=== PATIENT | female | born 1990 ===

== ENCOUNTER 2017-10-03 05:07 | Emergency (ER) | payer SELFPAY ==
[2017-10-03 06:45] VITALS: BMI 23.9
[2017-10-03] MEDS: Lactated Ringer's 1,000 ML IV SCH ×2 (07:00→08:27)
[2017-10-03] MEDS ORDERED: Betamethasone Soluspan 30 mg/5mL Inj Susp IM ONE (07:00)
[2017-10-03 07:45] LABS: ALBUMIN 3.6 g/dL (3.5-5.0); CALCIUM 8.8 mg/dL (8.4-10.2); GFR AFRICAN-AMERICAN > 60; GFR NON-AFRICAN AMERICAN > 60
[2017-10-03 07:47] LABS: ALT/SGPT 28 U/L (9-52); AST/SGOT 32 U/L (14-36); BLOOD UREA NITROGEN 10 mg/dl (7-17)
[2017-10-03 07:53] LABS: BASO % 0.3 % (0.0-2.0); HEMOGLOBIN 11.5 g/dL (12.0-16.0); LYMPH # 0.6 K/uL (1.0-4.3); LYMPH % 5.9 % (20.0-40.0); MEAN CELL VOLUME 88.7 fl (81.0-99.0); MEAN CORPUSCULAR HEMOGLOBIN 29.9 pg (27.0-31.0); MEAN CORPUSCULAR HGB CONC 33.7 g/dL (33.0-37.0); MEAN PLATELET VOLUME 9.5 fl (7.2-11.7); MONO # 0.4 K/uL (0.0-0.8); NEUT # 9.8 K/uL (1.8-7.0); NEUT % 89.8 % (50.0-75.0); PLATELET COUNT 260 K/uL (130-400); RBC 3.83 Mil/uL (3.80-5.20); RED CELL DISTRIBUTION WIDTH 13.9 % (11.5-14.5)
--- NOTE | 2017-10-03 07:55 | OBHP ---
Datetime: 10/03/2017 06:00 IP Adm Impression: , intrauterine IP Chief Complaint Other: Vomiting. IP Admit Plan: Observation/Evaluation Admit Comment, IP Provider: 27 y/o F at 35.4 weeks GA, JESUS 10/24/17 by 6-weeks US, c/o nausea, vomiting, epigastric abdominal pain and diarrhea that began at 01:00 am. Pt reports 5 episodes on gr eenish non-bloody vomiting and 3 episodes of watery non-bloody diarrhea. No recent travel or ill cont act. Pt was at hospital accompnying her mother who had a surgery a few days ago. No CTX, LOF or VB. F M present. Pt denies headache, visual disturbances, dizziness, CP, SOB, urinary complaints or pruritu s. NKDA Meds: PNV PNC Clinic: [facility]. OBHx: PMHx: denied PSHx: denied FHx: NC SHx: No smoking, alcohol or rec drugs. A/P 27 y/o F with IUP at 35.4 weeks GA, with PO intolerance, N/V/D, cheikh and cervical ibrahim es, need to anticipate probable pre-term delivery. -IV fluids -Betamethasone 12mg once. -CBC with diff, CMP, U/A. -Observation, will re-evaluate pt in 1-2 hours. -PTL discussed with pt and FOB. Case discussed with Dr Cardenas, OB chiropractor sole practitioner Gisel PGY-1. Addendum: I saw and examined the patient at presentation. Patient with likely gastroenteritis, but possible labor. Plan to maintain observation, IV fluid hydration, betamethasone. Maternal well-being a nd well-being reassuring at this time. I discussed plan with patient and all patient questions answered. Extremities - PN: Normal Abdomen - PN: Normal Back - PN: Normal Breast - PN: Normal Lungs - PN: Normal Heart - PN: Normal Neurologic - PN: Normal HEENT - PN: Normal General - PN: Normal FHR - Baseline A Provider: 160 IP Hx Assessment: The History has been Reviewed and is Current EGA AdmitDate IP: 35.4 Vital Signs Provider: Reviewed IP Chief Complaint: Maternal discomfort; Other NICHD Variability Prov Fetus A: Moderate 6-25bpm NICHD Accel Fetus A IP Provider: 15X15 FHR Category Provider Fetus A: Category I Dilatation, Provider: 1 Effacement, Provider: 50 Station, Provider: -2 Genitourinary Exam: Normal DTRs - PN: Not Done
[2017-10-03] MEDS ORDERED: Lactated Ringer's 1,000 ML IV SCH (08:15)
[2017-10-03 08:50] LABS: SQUAMOUS EPITHIAL 2 /hpf (0-5); URINE BACTERIA RARE (<OCC); URINE BILIRUBIN NEGATIVE (NEGATIVE); URINE BLOOD NEGATIVE (NEGATIVE); URINE CLARITY SLIGHTY-CLOUDY (Clear); URINE COLOR YELLOW (YELLOW); URINE GLUCOSE (UA) NEG (Normal); URINE LEUKOCYTE ESTERASE NEG Leu/uL (Negative); URINE NITRATE NEGATIVE (NEGATIVE); URINE PROTEIN NEGATIVE (NEGATIVE); URINE UROBILINOGEN 0.2-1.0 mg/dL (0.2-1.0)
[2017-10-03 10:29] LABS: ANISOCYTOSIS SLIGHT; BANDS 2 % (0-2); BASOPHIL 1 % (0-2); LYMPHOCYTE 7 % (20-50); MONOCYTE 4 % (0-10); NEUTROPHIL 86 % (42-75); PLATELET ESTIMATE NORMAL (NORMAL); TEARDROP CELLS SLIGHT; TOTAL CELLS COUNTED 100
[2017-10-03 10:30] LABS: LARGE PLATELETS PRESENT; TOXIC GRANULATION PRESENT
[2017-10-03 19:26] VITALS: BP 90/52; PULSE 98; RESP 16; O2SAT 96
== END 2017-10-03 14:30 | disposition home or self-care (01) ==
LOC: H.EROB2 05:07 → H.EROB 05:28 → H.EROB2 14:30
DX: O21.0 Mild hyperemesis gravidarum (principal); O26.93 Pregnancy related conditions, unspecified, third trimester; R10.13 Epigastric pain; Z3A.35 35 weeks gestation of pregnancy
CPT/HCPCS: 80053; 81003; 85025; 96372; 99283; J0702; J7120

== ENCOUNTER 2017-10-04 07:47 | Emergency (ER) | payer OTHER, SELFPAY ==
[2017-10-04 08:25] VITALS: BMI 24.7
[2017-10-04] MEDS ORDERED: Lactated Ringer's 1,000 ML IV SCH (09:00)
[2017-10-04] MEDS ORDERED: Betamethasone Soluspan 30 mg/5mL Inj Susp IM ONE (09:10)
[2017-10-04 21:54] VITALS: BP 91/51; PULSE 93; TEMP 98.1; O2SAT 99
== END 2017-10-04 10:49 | disposition home or self-care (01) ==
LOC: H.EROB2 07:47
DX: O26.93 Pregnancy related conditions, unspecified, third trimester (principal); I95.9 Hypotension, unspecified; O21.0 Mild hyperemesis gravidarum; Z3A.35 35 weeks gestation of pregnancy; Z23 Encounter for immunization
CPT/HCPCS: 96372; 99281; J0702; J7120

== ENCOUNTER 2017-10-27 03:06 | Inpatient (IN) | payer MEDICAID, SELFPAY ==
[2017-10-27 03:51] VITALS: BMI 24.2
[2017-10-27] MEDS: Lactated Ringer's 1,000 ML IV SCH ×2 (04:10→05:10)
[2017-10-27 04:22] LABS: BASO % 0.3 % (0.0-2.0); EOS % 0.5 % (0.0-4.0); HEMOGLOBIN 11.7 g/dL (12.0-16.0); LYMPH # 1.9 K/uL (1.0-4.3); LYMPH % 22.5 % (20.0-40.0); MEAN CELL VOLUME 86.8 fl (81.0-99.0); MEAN CORPUSCULAR HEMOGLOBIN 29.4 pg (27.0-31.0); MEAN CORPUSCULAR HGB CONC 33.9 g/dL (33.0-37.0); MEAN PLATELET VOLUME 8.7 fl (7.2-11.7); MONO # 0.7 K/uL (0.0-0.8); MONO % 8.4 % (0.0-10.0); NEUT # 5.7 K/uL (1.8-7.0); NEUT % 68.3 % (50.0-75.0); NRBC % 0.1 % (0.0-0.0); RBC 3.98 Mil/uL (3.80-5.20); RED CELL DISTRIBUTION WIDTH 14.4 % (11.5-14.5); WHITE BLOOD COUNT 8.3 K/uL (4.8-10.8)
[2017-10-27] MEDS ORDERED: Fentanyl/Bupivacaine HCl 250 ML EPI ONE (04:32)
[2017-10-27] MEDS ORDERED: Oxytocin 30 UNITS in Sodium Chloride 0.9% 500 ML IV ONE (04:33)
[2017-10-27] MEDS ORDERED: Bupivacaine HCl 0.25% PF (10 ml) Inj ONE (04:35)
--- NOTE | 2017-10-27 07:43 | OBADHP ---
Datetime: 10/27/2017 03:35 Admit Comment, IP Provider: 27 yo IUP 39 weeks w/ JESUS 11/03/17 by US done 03/11/17 at 6 weeks pres ents c/o ctx since 12:00 e/ 4-5 min, regular. No lof, vb, +FM. Also pt denies headache, visual distur bances, dizziness, CP, SOB, urinary complaints or pruritus. PNC: [facility], Dr Nunn. Last visit last . PObH: none Plow Holder: none. PMH: denies. FMH: none PSH: none Meds: PNV NKDA. SH: -etoh, tobacco, drugs. VS: wnl. monitorin/mod variability/15 x 15/cat I/no deccel. Pelvic: 4-5/80/-2 Bedside US: cephalic. A/P: 27 yo IUP 39 weeks in active labor. Admit to unit. Initiate labor protocol Continuos /maternal monitor. Monitor labor progression. Case discussed with Dr Fritz, OB hospitalist donor floor technician. YBecea PGY 1. Addendum by Dr. Fritz: Patient evaluated independently and I agree with the above. Patient is a @ 39 wks presents 4-5cm in labor. No antepartum issues, no medical/surgical problems. Patient admi tted, started IVF, CBC, Type and screen. FHR= 125 mod rufus, no accels, no decels. Janny q 3-5 mi ns. Patient does not want pain medication at this time. Re-evaluate as needed Pelvic Type - PN: Adequate Extremities - PN: Normal Abdomen - PN: Normal Back - PN: Not Done Breast - PN: Not Done Lungs - PN: Normal Heart - PN: Normal Thyroid - PN: Normal Neurologic - PN: Normal HEENT - PN: Normal General - PN: Normal FHR - Baseline A Provider: 130 Membranes, Provider: Intact Vital Signs Provider: Reviewed; Within Normal Limits IP Chief Complaint: Uterine contractions NICHD Variability Prov Fetus A: Moderate 6-25bpm NICHD Accel Fetus A IP Provider: 15X15 FHR Category Provider Fetus A: Category I NICHD Decel Fetus A IP Provider: None Dilatation, Provider: 4-5 Effacement, Provider: 80 Station, Provider: -2 Genitourinary Exam: Not Done DTRs - PN: Normal EGA AdmitDate IP: 39.0 IP Adm Impression: Term, intrauterine ; Active labor IP Admit Plan: Admit to unit; Initiate labor protocol Datetime: 10/04/2017 08:53 IP Chief Complaint Other: Beta shot Datetime: 10/03/2017 06:00 IP Hx Assessment: The History has been Reviewed and is Current
--- NOTE | 2017-10-27 10:46 | OBPN ---
Datetime: 10/27/2017 09:05 IP Progress Impression: Normal progression of labor; Reassuring heart rate IP Informed Consent Obtain: Vaginal Delivery; Risks, Benefits and Alternatives Discussed IP Progress Plan: Continue present management Membranes, Provider: Ruptured Amniotic Fluid Color, Provider: Clear IP Progress Note Comment: OB Hospitalist on-call Sign out rec'd Pt was 6-7cm 6:30am. She rec'd epidural and feels fine now. SE fully dilated A: Second stage of labor PLAN: aniticapte FHR Category Provider Fetus A: Category I Dilatation, Provider: 10 Effacement, Provider: 100 Station, Provider: 0 NICHD Decel Fetus A IP Provider: None Datetime: 10/27/2017 03:35 FHR - Baseline A Provider: 130 Vital Signs Provider: Reviewed; Within Normal Limits NICHD Accel Fetus A IP Provider: 15X15 NICHD Variability Prov Fetus A: Moderate 6-25bpm
[2017-10-27] MEDS ORDERED: Benzocaine/Menthol SPRAY TOP PRN ×2 (12:20→15:56)
--- NOTE | 2017-10-27 14:52 | OBDS ---
DELIVERY PERSONNEL Delivery Doctor: Leonard Morales DO Underpresser Hand: Geraldine Grimes RN Resident: Dr Parish Morris MATERNAL INFORMATION Delivery Anesthesia: Local; Epidural Estimated Blood Loss (ml): 200 Placenta Cultured: No Maternal Complications: None RN Comments: patient delivered viable female. clamped and placed on maternal chest for skin t o skin. remained in stable condition, apgars were noted 9 and 9. patient delivered placenta and pitocin 30units infusing 999 ml/hr. was weighed and returned to mother for skin to skin, latching and bonding. both remained in stable condition. Provider Comments: Over intact perineum, of live from cephalic presentation. Infant was crying spontaneously and bulb suctioned. Skin to skin contact was done with mother. Placenta was d elivered intact spontaneously. EBL 200cc She remained stable LABOR SUMMARY EDC: 11/03/2017 00:00 No. Babies in Womb: 1 Labor Anesthesia: Epidural LABOR INFORMATION Reason for Induction: Not Applicable Onset of Labor: 10/27/2017 02:30 Complete Dilatation: 10/27/2017 09:05 Oxytocin: N/A Group B Beta Strep: Negative Steroids Given: None Reason Steroids Not Administered: Not Applicable MEMBRANES Membranes Rupture Method: Spontaneous Rupture of Membranes: 10/27/2017 06:20 Amniotic Fluid Color: Clear Amniotic Fluid Amount: Moderate Amniotic Fluid Odor: Normal STAGES OF LABOR Stage 1 hrs: 6 Stage 1 min: 35 Total Time in Labor hrs: 9 Total Time in Labor min: 42 VAGINAL DELIVERY Episiotomy: None Laceration Extension: Second Degree Laceration Type: Perineal Laceration Repair: Yes Laceration Repair Note: 1% Lidocaine was infiltrated (5cc). Perineal laceration was repeaired iwth 2.0 Vicryl Rapdie suture Initial Vag Sponge Count: 5 Final Vag Sponge Count: 5 Initial Vag Sharps Count: 4 Final Vag Sharps Count: 4 Sponge Count Correct: Yes Sharps Count Correct: Yes Count Comment: Suture needle (3) Syringe 1 BABY A INFORMATION Method of Delivery: Vaginal Born in Route : No : N/A Forceps: N/A Vacuum Extraction: N/A Shoulder Dystocia : No PRESENTATION/POSITION BABY A Presentation: Cephalic PLACENTA INFORMATION BABY A Placenta Delivery Time : 10/27/2017 12:12 Placenta Method of Delivery: Spontaneous Placenta Status: Delivered SCORES BABY A Heart Rate 1 min: >100 bpm Resp Effort 1 min: Good Cry Reflex Irritability 1 min: Cough or Sneeze or Pulls Away Muscle Tone 1 min: Active Motion Color 1 min: Body [place], Extremities Blue Resuscitation Effort 1 min: Tactile Stimulation SCORE 1 MIN: 9 Heart Rate 5 min: >100 bpm Resp Effort 5 min: Good Cry Reflex Irritability 5 min: Cough or Sneeze or Pulls Away Muscle Tone 5 min: Active Motion Color 5 min: Body [place], Extremities Blue Resuscitation Effort 5 min: N/A SCORE 5 MIN: 9 INFANT INFORMATION BABY A Gestational Age at Delivery: 39.0 Gestational Status: Term Infant Outcome : Liveborn Condition : Stable Infant Sex: Female WEIGHT/LENGTH BABY A Birthweight (gms): 3360 Infant Weight (lb): 7 Infant Weight (oz): 6 CORD INFORMATION BABY A No. Cord Vessels: 3 Nuchal Cord : N/A Cord Blood Taken: Yes Suction: Mouth
[2017-10-28] MEDS ORDERED: Simethicone 80 mg Chewtab PO PRN (06:33)
[2017-10-28 06:41] LABS: HEMOGLOBIN 10.9 g/dL (12.0-16.0); MEAN CELL VOLUME 90.1 fl (81.0-99.0); MEAN CORPUSCULAR HEMOGLOBIN 28.5 pg (27.0-31.0); MEAN CORPUSCULAR HGB CONC 31.6 g/dL (33.0-37.0); RBC 3.84 Mil/uL (3.80-5.20); WHITE BLOOD COUNT 11.7 K/uL (4.8-10.8)
--- NOTE | 2017-10-28 11:15 | OBPPN ---
Datetime: 10/28/2017 06:28 PP Pain Prov: Within normal limits PP Nausea Prov: Denies PP Flatus Prov: Yes PP BM Prov: No PP Breasts Prov: Not Done PP Heart Prov: Normal PP Lungs Prov: Normal PP Abdomen/Uterus Prov: Normal PP Lochia Prov: Normal PP Vulva/Perineum Prov: Not Done PP CVA Tenderness Prov: Not Done PP Extremities Prov: Normal PP C/S Incision Prov: Not Applicable PP Progress Prov: Normal PP Impression Prov: Normal progression PP Plan Prov: Continue present management PP Progress Note Prov: S: 27 yo s/p NVD. Pt. is seen and examined at bedside this morning. N o overnight events. Pt reports occasional abdominal pain, but well controlled with pain meds. Pt is a mbulating without any difficulties. baby. Tolerating PO diet. Lochia is similar to ligh t menses in volume. Voiding freely, no BM yet but passing gas per rectum. Denies fever/chills, diarrh ea, nausea/vomiting, chest pain, dyspnea, and dizziness. VS: stable Gen: NAD Cardio: + s1s2, no m/r/g Resp: clear breath sounds b/l Abdomen: BS+, NT, Uterus is firm and at the level of the umbilicus. Ext: No edema, calves nontender Neuro/Psych: AAOx3, no grossly focal deficit, preserved affect and mood. A/P: 27 s/p NVD. Pt remains afebrile, tolerating pain with medication, doing well on PPD 1. OOB with caution. SCDs for DVT prophylaxis, pt ambulating Ibuprofen 600mg for pain. Colace 100mg PO BID for constipation Encourage . PP CBC: pending Anticipated d/c: 10/29/17 YBecerra PGY 1 The patient was ssen with resident and I agree with the note IP PP Procedures: None Vital Signs Provider PP: Reviewed; Within Normal Limits
[2017-10-29 16:15] VITALS: BP 100/69; PULSE 59; RESP 18; TEMP 97.6; O2SAT 100
== END 2017-10-29 11:25 | disposition home or self-care (01) | DRG 373 ==
LOC: H.EROB2 03:06 → H.L&D 03:51 → H.OB/GYN 15:28
PROVIDERS: ADMIT Obstetrics & Gynecology; ATTEND Obstetrics & Gynecology
PROC: 0KQM0ZZ Repair Perineum Muscle, Open Approach (ICD-10-PCS; principal; 2017-10-27)
PROC: 10E0XZZ Delivery of Products of Conception, External Approach (ICD-10-PCS; 2017-10-27)
PROC: 4A1HXCZ Monitoring of Products of Conception, Cardiac Rate, External Approach (ICD-10-PCS; 2017-10-27)
DX: O70.1 Second degree perineal laceration during delivery (principal); K59.00 Constipation, unspecified; Z37.0 Single live birth; Z3A.39 39 weeks gestation of pregnancy